=== PATIENT | female | born 1950 | race Caucasian/White ===

== ENCOUNTER → 2019-12-30 11:43 | Outpatient (CLI) | payer MEDICARE, OTHER, SELFPAY ==
--- NOTE | ~2019-12-30 | XR_ITS ---
EXAMINATION: XR foot RT min 3V DATE: 12/30/2019 12:16 INDICATION: Posttraumatic pain at the first metatarsal TECHNIQUE: Dorsoplantar, two oblique and lateral views of the right foot were obtained. COMPARISON: None. FINDINGS: Alignment is normal. Osteopenia. No fracture. 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 No cortical erosions or periosteal reaction. Moderate-sized plantar calcaneal spur. Additional prominent enthesophytes at the dorsal aspect of the navicular cuneiform solomon int. Soft tissues are unremarkable. IMPRESSION: 1. Mild degenerative skeletal changes. No acute osseous abnormality. Reviewed, dictated and finalized at location B.
== END ==
PROVIDERS: Visit Provider Family Medicine Adolescent Medicine
DX: S99.921A Unspecified injury of right foot, initial encounter (principal)
CPT/HCPCS: 73630

== ENCOUNTER → 2020-02-27 12:15 | Outpatient (CLI) | payer MEDICARE, SELFPAY ==
--- NOTE | ~2020-02-27 | MM_ITS ---
EXAMINATION: MM screening ugo BI w tae HISTORY: Screening mammogram, family history of breast cancer in her sister. TECHNIQUE: Craniocaudal and mediolateral oblique 3-D tomosynthesis images were obtained and synthetic 2-D images were generated. CAD analysis was submitted and interpreted. COMPARISON: 04/13/2014, 01/18/2013 BREAST PARENCHYMAL COMPOSITION: There are scattered areas of fibroglandular density. FINDINGS: There is no evidence of suspicious mass, calcification, or architectural distortion to sugg est malignancy in either breast. There has been no suspicious interval change. IMPRESSION: 1. No mammographic evidence of malignancy. 2. Recommend routine screening mammography in one year. BI-RADS Category 1: Negative Reviewed, dictated and finalized at location A. 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
== END ==
PROVIDERS: PCP Family Medicine Adolescent Medicine; Visit Provider Family Medicine Adolescent Medicine
DX: Z12.31 Encounter for screening mammogram for malignant neoplasm of breast (principal)
CPT/HCPCS: 77063; 77067

== ENCOUNTER 2020-04-03 11:38 | Outpatient (NON) | payer MEDICARE, OTHER, SELFPAY ==
[2020-04-03 22:35] LABS: SARS-CoV-2 RNA PCR Positive
== END 2020-04-03 11:39 ==
PROVIDERS: PCP Family Medicine Adolescent Medicine; Visit Provider Family Medicine Adolescent Medicine
DX: U07.1 COVID-19 (principal); R05 Cough; R09.81 Nasal congestion
CPT/HCPCS: C9803; U0003; U0005

== ENCOUNTER → 2021-03-18 13:10 | Outpatient (CLI) | payer MEDICARE, SELFPAY ==
--- NOTE | ~2021-03-18 | MM_ITS ---
EXAMINATION: MM screening ugo BI w tae HISTORY: Screening mammogram, family history of breast cancer in her daughter and sister. TECHNIQUE: Craniocaudal and mediolateral oblique 3-D tomosynthesis images were obtained and synthetic 2-D images were generated. CAD analysis was submitted and interpreted. COMPARISON: 02/27/2020, 04/13/2014, 01/18/2013 BREAST PARENCHYMAL COMPOSITION: There are scattered areas of fibroglandular density. FINDINGS: There is no evidence of suspicious mass, calcification, or architectural distortion to sugg est malignancy in either breast. There has been no suspicious interval change. IMPRESSION: 1. No mammographic evidence of malignancy. 2. Recommend routine screening mammography in one year. BI-RADS Category 1: Negative Reviewed, dictated and finalized at location A. 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
== END ==
PROVIDERS: Visit Provider Family Medicine Adolescent Medicine
DX: Z12.31 Encounter for screening mammogram for malignant neoplasm of breast (principal)
CPT/HCPCS: 77063; 77067

== ENCOUNTER 2021-09-20 10:38 | Outpatient (CLI) | payer MEDICARE, OTHER, SELFPAY ==
--- NOTE | ~2021-09-20 | MR_ITS ---
EXAMINATION: MR foot RT wo con DATE: 09/20/2021 11:27 INDICATION: Right foot pain primarily between the third and fourth toes. Assess for Holland's neuroma. TECHNIQUE: Magnetic resonance imaging (MRI) of the right fore/mid foot was performed without intraven ous contrast. Sequences included sagittal T1-weighted FSE, sagittal fluid sensitive FSE STIR, coronal PD-weighted FS FSE, coronal T1-weighted FSE, axial PD-weighted FS FSE, and axial PD-weighted FSE. COMPARISON: None FINDINGS: Bone alignment is normal. No fracture. Heterotopic ossicle versus hypertrophic osteophyte along the d orsal margin of the navicula with mild underlying cystic change along the medial dorsal margin of the distal articular surface of the navicula. This could be due to either osteoarthritis, chronic enthes opathy at the capsular insertion or sequela of prior trauma/capsular tear. Mild osteoarthritis along the second-fourth tarsal metatarsal joints with additional mild cystic change at the distal medial ma rgin of the mid cuneiform. Otherwise normal marrow signal. Physiologic amount of fluid in the joint s pace with no joint effusions, bursitis, tenosynovitis or other abnormal fluid collections. The [place] ligament complex as well as the collateral ligament complex at the metatarsophalangeal and interph alangeal joints are normal. There is subtle increased intermediate signal intensity tissue situated b etween the second and third metatarsophalangeal joints. The lesion measures 9 mm proximal to distal, 9 mm craniocaudal. In the coronal plane it has a teardrop shape but bulging dorsally as opposed to pl pardeep and without evident extension below the level of the transverse ligament. 2 mm in thickness bet ween the closest approach of the metatarsal heads and slightly thicker measuring 3 to 4 mm medial col lateral more dorsally between the bases of the proximal phalanges. There is small amount of fluid sig nal situated between the proximal margin of the heads of the second and third metatarsals likely with in the intermetatarsal bursa but which remains within normal limits. Visualized portions of the flexo r and extensor tendons and the intrinsic musculature of the foot is unremarkable. IMPRESSION: 1. No definitive Holland's neuroma. There is small amount of intermediate signal intensity tissue situ ated between the second third metatarsophalangeal joints however this projects primarily dorsally wit h no extension plantar to the level of the intermetatarsal ligament is a be typical for Holland's neur maria l. There is also a minimal amount of fluid at the intermetatarsal bursa which remains within normal limits. No other etiology identified for reported pain in the forefoot. 2. Heterotopic ossicle versus dorsal osteophyte with associated mild cystic change along the distal d orsal surface of the navicula which could be related either osteoarthritis, chronic enthesopathy or s equela of a chronic dorsal capsular avulsion injury at the navicular cuneiform articulation. Reviewed, dictated and finalized at location A. IMPRESSION: 1. No definitive Holland's neuroma. There is small amount of intermediate signal intensity tissue situated between the second third metatarsophalangeal joints however this projects primarily dorsally with no extension plantar to the level of the intermetatarsal ligament is a be typical for Holland's neuroma. There is also a minimal amount of fluid at the intermetatarsal bursa which remains with in normal limits. No other etiology identified for reported pain in the forefoot. 2. Heterotopic ossicle versus dorsal osteophyte with associated mild cystic vasu nge along the distal dorsal surface of the navicula which could be related eith er osteoarthritis, chronic enthesopathy or sequela of a chronic d
== END 2021-09-20 10:39 | disposition home or self-care (01) ==
LOC: ANHIMG 10:47
PROVIDERS: PCP Family Medicine Adolescent Medicine; Visit Provider Podiatrist Foot & Ankle Surgery
DX: M79.671 Pain in right foot (principal)
CPT/HCPCS: 73718

== ENCOUNTER 2022-01-13 00:53 | Day surgery (SDC) | payer MEDICARE, OTHER, SELFPAY ==
[2022-01-07 11:12] VITALS: BMI 38.2
[2022-01-13 06:45] VITALS: BP 145/64; PULSE 80; RESP 18; TEMP 36.3; O2SAT 99; BMI 33.1
[2022-01-13] MEDS: LACTATED RINGERS 1,000 ML 150 ML IV CONT (06:55)
[2022-01-13 07:02] LABS: Glucose Point of Care 155 mg/dl (65-105)
--- NOTE | 2022-01-13 07:23 | WPDANESEPPF ---
Anes - Initial Pre Proc Eval Procedure: Operation Date: 01/13/22 08:00 Proposed Procedures p Screening Colonoscopy - Mustapha Easton MD Date/Time: 01/13/22 07:23 Surgeon: Mustapha Easton MD Pre Op Diagnosis: neoplasm screening Patient Data Age: 71 Gender: F Height: 1.68 m Weight: 93.1 kg Last Vital Signs Temp 36.3 C L 01/13/22 06:45 Pulse 80 01/13/22 06:45 Resp 18 01/13/22 06:45 BP 145/64 H 01/13/22 06:45 Pulse Ox 99 01/13/22 06:45 O2 Del Method Room Air 01/13/22 06:45 Allergies Allergy/AdvReac Type Severity Reaction Status Date / Time fenofibrate AdvReac Severe hyperglycem Verified 01/13/22 06:44 ia minocycline AdvReac Mild VOMITING Verified 01/13/22 06:44 Home Medications Medication Instructions Recorded Confirmed Type blood sugar diagnostic (Contour #100 ea 06/28/21 01/13/22 Rx Next Test Strips) diclofenac sodium 75 mg 75 mg PO BID #180 tabs 11/14/21 01/13/22 Rx tablet,delayed release hydrochlorothiazide 25 mg tablet 25 mg PO DAILY #90 tabs 11/14/21 01/13/22 Rx metformin 500 mg tablet 500 mg PO BID #180 tabs 11/14/21 01/13/22 Rx levothyroxine 112 mcg tablet 112 mcg PO DAILY #90 tabs 12/06/21 01/13/22 Rx Laboratory Tests 01/13/22 06:59 POC Capillary Glucose 155 mg/dl H mg/dl (65-105) Patient hx anesthesia problems: none Family hx anesthesia problems: none Results Review: All pre-operative results and documents have been reviewed as part of the pre-operative evaluation. [facility] Past Medical History Medical History (Updated 11/28/21 @ 06:25 by Mando Blankenship MD) Bartholin's duct cyst Surgical History Surgical History History of endometrial ablation Hx of arthroscopy of left knee Hx of BSO (bilateral salpingo-oophorectomy) (08/2017) Family History Family History Father Brain tumor Mother Lymphoma Social History Social History Smoking packs per day: 0.25 Smoking cigarettes per day: 5.0 Years smoked: 18 Smoking pack-years: 4.50 Smoking status: Former smoker Tobacco type: cigarettes Second hand tobacco smoke exposure: No Smoking end date: 09/13/97 Alcohol intake: never Substance use: never Substance use type: does not use Living arrangements: with family Gender identity (if verbalized by the patient): Female Sexual Orientation (if Verbalized by the Patient): Straight or Heterosexual Spiritual care concerns: No Anes - Eval Final PreProcedure Day of Procedure 01/13/22 07:23 Patient weight: obese Heart: regular rate and rhythm Lungs: clear to auscultation Airway: Mallampati scale class II Neurological: alert and oriented Last oral intake: >/= 8 hours ASA classification: III Emergent: no Anesthetic plan: proceed Anesthesia type and monitoring: general GIVS and standard monitoring Results Review: All pre-operative results and documents have been reviewed as part of the pre-operative evaluation. Informed Consent: The patient's anesthetic plan and its attendant risks and benefits were discussed with the patient/family/POA. Questions were solicited and answers provided to the satisfaction of the patient/family/POA.
--- NOTE | 2022-01-13 07:24 | P.HP_ITS ---
History of Present Illness History of Present Illness Consent: Risks, benefits, and alternatives have been discussed and questions answered. Patient agrees to proceed with procedure. Chief complaint: neoplasm screening Narrative: Mary Lancaster is a 71 year old female Presents for screening colonoscopy. Patient's current weight appetite bowel movements are normal. She denies abdominal pain. She has had no bleeding. Family history is noncontributory. Patient did have prior colonoscopy 2003 that was unremarkable. Review of Systems Review of Systems: Review of systems noncontributory. [facility] Past Medical History Medical History (Updated 01/13/22 @ 07:25 by Mustapha Easton MD) Bartholin's duct cyst Surgical History Surgical History History of endometrial ablation Hx of arthroscopy of left knee Hx of BSO (bilateral salpingo-oophorectomy) (08/2017) Family History Family History Father Brain tumor Mother Lymphoma Social History Social History Smoking packs per day: 0.25 Smoking cigarettes per day: 5.0 Years smoked: 18 Smoking pack-years: 4.50 Smoking status: Former smoker Tobacco type: cigarettes Second hand tobacco smoke exposure: No Smoking end date: 09/13/97 Alcohol intake: never Substance use: never Substance use type: does not use Living arrangements: with family Gender identity (if verbalized by the patient): Female Sexual Orientation (if Verbalized by the Patient): Straight or Heterosexual Spiritual care concerns: No Meds Home Medications and Allergies Home Medications Medication Instructions Recorded Confirmed Type blood sugar diagnostic (Contour #100 ea 06/28/21 01/13/22 Rx Next Test Strips) diclofenac sodium 75 mg 75 mg PO BID #180 tabs 11/14/21 01/13/22 Rx tablet,delayed release hydrochlorothiazide 25 mg tablet 25 mg PO DAILY #90 tabs 11/14/21 01/13/22 Rx metformin 500 mg tablet 500 mg PO BID #180 tabs 11/14/21 01/13/22 Rx levothyroxine 112 mcg tablet 112 mcg PO DAILY #90 tabs 12/06/21 01/13/22 Rx Allergies Allergy/AdvReac Type Severity Reaction Status Date / Time fenofibrate AdvReac Severe hyperglycem Verified 01/13/22 06:44 ia minocycline AdvReac Mild VOMITING Verified 01/13/22 06:44 Vital Signs Vital Signs - 24 hr 01/13/22 06:45 Temperature 97.3 F L Pulse Rate 80 Respiratory Rate 18 Blood Pressure 145/64 H Pulse Oximetry 99 Oxygen Delivery Room Air Exam Narrative: Physical exam reveals patient to be alert. Vital signs stable. HEENT exam is unremarkable. Patient is anicteric. Lungs are clear to auscultation and percussion. Heart is without murmur or extra sounds. Abdomen bowel sounds are present soft nontender with no organomegaly. Digital external rectal exam is normal. Assessment and Plan Assessment and plan (1) Encounter for screening colonoscopy: Code(s): Z12.11 - Encounter for screening for malignant neoplasm of colon Status: Acute Assessment and Plan: Patient presents for screening colonoscopy. Appears to be at average risk f
[2022-01-13 08:16] VITALS: BP 118/57; PULSE 68; RESP 21; O2SAT 98
[2022-01-13 08:26] VITALS: BP 140/64; PULSE 62; RESP 20; O2SAT 97
[2022-01-13 08:36] VITALS: BP 154/68; PULSE 69; RESP 18; O2SAT 100
== END 2022-01-13 08:42 | disposition home or self-care (01) ==
PROVIDERS: PCP Family Medicine Adolescent Medicine; Visit Provider Internal Medicine Gastroenterology
PROC: 0DJD8ZZ Inspection of Lower Intestinal Tract, Via Natural or Artificial Opening Endoscopic (ICD-10-PCS; CPT 45378; principal; 2022-01-13 08:00)
DX: Z12.11 Encounter for screening for malignant neoplasm of colon (principal); K64.8 Other hemorrhoids; K57.30 Diverticulosis of large intestine without perforation or abscess without bleeding; Z79.84 Long term (current) use of oral hypoglycemic drugs; Z87.891 Personal history of nicotine dependence; E66.9 Obesity, unspecified; Z68.33 Body mass index [BMI] 33.0-33.9, adult
CPT/HCPCS: G0121; 82948; J2704; J7120

== ENCOUNTER 2022-07-15 16:56 | Outpatient (CLI) | payer MEDICARE, OTHER, SELFPAY ==
--- NOTE | ~2022-07-15 | MM_ITS ---
EXAMINATION: MM screening ugo BI w tae HISTORY: Screening mammogram, family history of breast cancer in her sister. TECHNIQUE: Craniocaudal and mediolateral oblique 3-D tomosynthesis images were obtained and synthetic 2-D images were generated. CAD analysis was submitted and interpreted. COMPARISON: 03/18/2021 and 02/27/2020 BREAST PARENCHYMAL COMPOSITION:There are scattered areas of fibroglandular density. FINDINGS: Multiple small bilateral circumscribed breast nodules are stable from prior exam. Bilateral benign calcifications are present. No suspicious mass, calcification, or architectural distortion ar e identified in either breast to suggest malignancy. There has been no suspicious interval change. IMPRESSION: No mammographic evidence of malignancy. Recommend routine screening mammography in one year. BI-RADS Category 2: Benign finding(s). Reviewed, dictated and finalized at [facility].
== END 2022-07-15 16:57 | disposition home or self-care (01) ==
PROVIDERS: PCP Family Medicine Adolescent Medicine; Visit Provider Family Medicine Adolescent Medicine
DX: Z12.31 Encounter for screening mammogram for malignant neoplasm of breast (principal)
CPT/HCPCS: 77063; 77067

== ENCOUNTER 2023-08-18 14:11 | Outpatient (CLI) | payer MEDICARE, OTHER, SELFPAY ==
--- NOTE | ~2023-08-18 | MM_ITS ---
EXAMINATION: MM screening ugo BI w tae HISTORY: Screening TECHNIQUE: Craniocaudal and mediolateral oblique 3-D tomosynthesis images were obtained and synthetic 2-D images were generated. CAD analysis was submitted and interpreted. COMPARISON: Comparison to multiple prior studies sequentially, with oldest reviewed study dated 02/13. BREAST PARENCHYMAL COMPOSITION: Not dense: There are scattered areas of fibroglandular density. FINDINGS: There is no evidence of suspicious mass, calcification, or architectural distortion to sugg est malignancy in either breast. There has been no suspicious interval change. IMPRESSION: 1. No mammographic evidence of malignancy. 2. Recommend routine screening mammography in one year. BI-RADS Category 1: Negative Reviewed, dictated and finalized at location B.
== END 2023-08-18 14:12 | disposition home or self-care (01) ==
PROVIDERS: PCP Family Medicine Adolescent Medicine; Visit Provider Family Medicine Adolescent Medicine
DX: Z12.31 Encounter for screening mammogram for malignant neoplasm of breast (principal)
CPT/HCPCS: 77063; 77067

== ENCOUNTER 2024-05-30 14:11 | Outpatient (CLI) | payer MEDICARE, OTHER, SELFPAY ==
--- NOTE | ~2024-05-30 | DEXA_ITS ---
Bone Density Report Name: GONZÁLEZ BETANCUR Age: 74 Sex: Female Ethnicity: White Date of : 1950 Indication: postmenopausal; screening for osteoporosis; height loss; prior fracture; hysterectomy; Referring Provider: REGULO TYLER Study: Bone densitometry was performed. Exam Date: May 30, 2024 Accession number: [id number] Bone Density: Region BMD T-score Z-score Classification AP Spine(L1-L4) 1.261 1.9 4.3 Normal Femoral Neck (Left) 0.890 0.4 2.4 Normal Total Hip (Left) 1.086 1.2 2.9 Normal Femoral Neck (Right) 0.963 1.0 3.1 Normal Total Hip (Right) 1.087 1.2 2.9 Normal Total Hip Mean 1.087 1.2 2.9 Normal World Health Organization criteria for BMD impression classify patients as: Normal (T-score at or above -1.0), Osteopenia (T-score between -1.0 and -2.5), or Osteoporosis (T-score at or below -2.5). 10-year Fracture Risk: FRAX not reported because: All T-scores for Spine Total, Hip Total, Femoral Neck at or above -1.0 Prior hip or vertebral fracture Clinical Information Provided by Patient: Have had a previous hip or vertebral fracture Has had a low trauma fracture Has the following medical conditions: Hysterectomy Patient maximum height was 65.5 Menopause Age: 37 Onset of menses at age 11 Number of children 2 Missed period for more than 6 months in a row Impression: The patient has normal bone mass. The patient has risk factors, including: previous fracture. Discussion: INCREASED RISK OF FRACTURE DUE TO HISTORY OF FRACTURE. The patient's previous fracture puts the patient at high risk of a future fracture. In untreated patients, the risk of osteoporotic fracture increases approximately two-fold for each 1.0 SD decrease in T-score. Low bone density is not the only risk factor for fracture; also consider factors such as patient's age, frailty or poor health, risk of falling, risk of injury, previous osteoporotic fracture, family history of osteoporosis, cigarette smoking, low body weight, etc. Not everyone with a low trauma fracture has osteoporosis; osteomalacia and other metabolic bone disorders should also be considered. Patients who have osteoporosis should be evaluated for specific diseases and conditions (secondary causes) that may cause or contribute to bone loss and fracture risk. National Osteoporosis Foundation (NOF) recommends pharmacologic intervention for patients with a prior hip or vertebral fracture regardless of BMD T-score. The patient should follow a healthful lifestyle (good nutrition with adequate calcium and vitamin D, and appropriate weight-bearing exercise). Follow-Up: Consider a repeat BMD and Vertebral Fracture Assessment (VFA) exam in 2 years or sooner if medically necessary, to reassess this patient's status. Reported by: CAMERON on 05/30/2024 2:45:00 PM. Reviewed, dictated and finalized at location A.
--- OUTSIDE RECORDS SUMMARY | 2024-05-30 16:46 | XMS_ITS | Continuity of Care Document ---
Author Organization [facility] Address [address] [place] [address] [address] [place] [address] Phone Care Team Providers Care Chief Service Observer Name Role Phone Villarreal OD, Mustapha Unavailable Unavailable Procedures Procedure Date Eye Exam & Treatment Refraction Advance Directives Directive Yes / No Effective Date File Name No Information Encounters Encounter Description Practice Location Reason(s) For Visit Diagnoses Date Provider Providers Copied on Encounter [facility], [address] [place] [address] [address], [place], [place], [id number], [place] tel:[phone] [address] [facility] No Information [phone] Villarreal OD Mustapha. [address] , [address], [place], [address], [place]. tel:[phone] Family History Family Member Type Diagnosis Age At Onset No Information Payers Payer name Insurance type Covered constitution party ID Aby espinoza(s) [facility] CI [id number] Social History Type Description Quantity Date Captured Comments Sex Female Smoking Status No Information Chief Complaint And Reason For Visit No Information Reason For Referral Reason For Referral No Information History Of Present Illness Encounter Date Complaint History Of Prese nt Illness No Information Functional Status Date Functional Assessmen t No Information Instructions Date Instruction Additional Infor mation No Information Assessments Type Assessment Date No Information Patient Care Teams Name Effective Dates (start - stop) Status Members No Information
--- OUTSIDE RECORDS SUMMARY | 2024-05-30 16:46 | XMS_ITS | Encounter Summary ---
Author Organization [facility] Address [address] [place] [address] Care Team Providers Care Motor Setter Name Role Phone Unavailable Primary Care Provider Unavailabl e Prior Encounters Date Type Department Care Team Description 12/15/2023 Travel 12/15/2023 11:00 AM CDT Office Visit [facility] [address] [place] [phone] Casandra Lizarraga, [facility] 09/08/2023 11:00 AM CDT Office Visit [address] [phone] Casandra Lizarraga, [facility] 09/08/2023 11:00 AM CDT Office Visit [facility] [address] [place] [phone] Agata Villafana DMD Encounter for dental examination and cleaning without abnormal findings (Primary Dx) 09/03/2023 Travel 09/03/2023 2:00 PM CDT Office Visit [facility] [address] [place] [phone] Mohamud Hanks DDS 08/05/2023 Travel 08/05/2023 9:30 AM CDT Office Visit [address] [phone] Mohamud Hanks DDS 07/10/2023 10:00 AM CDT Office Visit [address] [phone] Agata Villafana DMD 06/23/2023 11:00 AM CDT Office Visit [facility] [address] [place] [phone] Mohamud Hanks S 04/16/2023 Travel 04/16/2023 10:00 AM RISK ADVISOR Office Visit [facility] [address] [place] [phone] Mohamud Hanks DDS 02/26/2023 Travel 02/26/2023 2:00 PM RISK ADVISOR Office Visit [facility] [address] [place] [phone] Agata Villafana, [facility] 02/26/2023 1:00 PM RISK ADVISOR Office Visit [facility] [address] [place] [phone] Casandra Lizarraga, [facility] 09/12/2022 11:00 AM CDT Office Visit [facility] [address] [place] [phone] Casandra Lizarraga, [facility] 09/04/2022 Travel 09/04/2022 1:00 PM CDT Office Visit [address] [phone] Casandra Lizarraga, [facility] 09/02/2022 Travel 09/02/2022 11:00 AM CDT Office Visit [facility] [address] [place] [phone] Casandra Lizarraga, [facility] 05/20/2022 12:00 PM RISK ADVISOR Office Visit [facility] [address] [place] [phone] Rickey Duvall [facility] 11/26/2021 Travel 11/26/2021 10:00 AM CDT Office Visit [facility] [address] [place] [phone] Rosanne Dodson, [facility] 08/28/2021 10:00 AM CDT Office Visit [facility] [address] [place] [address] Joce Severino DDS 08/28/2021 10:00 AM CDT Office Visit [facility] [address] [place] [address] Rosanne Dodson, [facility] 05/29/2021 2:00 PM CDT Office Visit [facility] [address] [place] [address] Rosanne Dodson, [facility] 02/27/2021 Travel 02/27/2021 11:00 AM RISK ADVISOR Office Visit [facility] [address] [place] [phone] Victoria Victoria, DMD 02/27/2021 11:00 AM RISK ADVISOR Office Visit [facility] [address] [place] [address] Rosanne Dodson, [facility] 11/14/2020 Travel 11/14/2020 11:00 AM CDT Office Visit [facility] [address] [place] [address] Rosanne Dodson, [facility] 04/04/2019 Converted CPS Chart Documents [facility] [address] [place] [phone] <No scans attached> 04/04/2019 Converted 13x Documents [facility] [address] [place] [address] <No scans attached> Last Filed Vital Signs Vital Sign Reading Time Taken Comments Blood Pressure 152/79 09/12/2022 11:12 AM CDT Pulse 61 09/12/2022 11:12 AM CDT Temperature 36.1 C (97 F) 02/27/2021 9:59 AM RISK ADVISOR Respiratory Rate - - Oxygen Saturation - - Inhaled Oxygen Concentration - - Weight - - Height - - Body Mass Index - - Plan of Treatment Upcoming Encounters Date Type Department Care Team (Late st Contact Info) Description 06/21/2024 11:00 AM CDT Office Visit [facility] [address] [place] [phone] Yolanda Edwards, [facility] [address] [place] [address] Procedures Procedure Name Priority Date/Time Associated Diagnosis Comments PERIO MAINTENANCE Routine 12/15/2023 11: 00 AM CDT PERIODIC ORAL EVALUATION - ESTABLISHED PATIENT Routine 09/08/2023 11:00 AM CDT Encounter for dental examination and cleaning without abnormal findings BITEWINGS - FOUR RADIOGRAPHIC IMAGES Routine 09/08/2023 11:00 AM CDT ORAL HYGIENE INSTRUCTIONS Routine 2023 11:00 AM CDT TOPICAL APPLICATION OF FLUORIDE VARNISH Routine 09/08/2023 11:00 AM CDT PERIO MAINTENANCE Routine 09/08/2023 11: 00 AM CDT RE-EVALUATION POST-OPERATIVE OFFICE VISIT Routine 09/03/2023 2:00 PM CDT 13 UL OSSEOUS SURGERY ONE TO THREE CONTIGUOUS TEETH Routine 08/05/2023 9:30 AM CDT OCCLUSAL GUARD DELIVERY Routine 08/05/19 9:30 AM CDT 19 LL OSSEOUS SURGERY FOUR OR MORE CONTIGUOUS TEETH Routine 08/05/2023 9:30 AM CDT RE-EVALUATION POST-OPERATIVE OFFICE VISIT Routine 07/10/2023 10:00 AM CDT 4 UR ALVEOLOPLASTY IN CONJUNCTION WITH EXTRACTIONS - ONE TO THREE TEETH OR TOOTH SPACES, PER QUADRANT Routine 06/23/2023 11:00 AM CDT UR PRIMARY CLOSURE OF A SINUS PERFORATION Routine 06/23/2023 11:00 AM CDT OCCLUSAL GUARD HARD APPLIANCE, FULL ARCH Routine 06/23/2023 11:00 AM CDT 5 PLACEMENT OF INTRA-SOCKET BIOLOGICAL DRESSING TO AID IN HEMOSTASIS OR CLOT STABILIZATION, PER SITE Routine 06/23/2023 11:00 AM CDT 4 PLACEMENT OF INTRA-SOCKET BIOLOGICAL DRESSING TO AID IN HEMOSTASIS OR CLOT STABILIZATION, PER SITE Routine 06/23/2023 11:00 AM CDT 5 EXTRACTION, ERUPTED TOOTH REQUIRING REMOVAL OF BONE AND/OR SECTIONING OF TOOTH Routine 06/23/2023 11:00 AM CDT 3 PLACEMENT OF INTRA-SOCKET BIOLOGICAL DRESSING TO AID IN HEMOSTASIS OR CLOT STABILIZATION, PER SITE Routine 06/23/2023 11:00 AM CDT 4 EXTRACTION, ERUPTED TOOTH REQUIRING REMOVAL OF BONE AND/OR SECTIONING OF TOOTH Routine 06/23/2023 11:00 AM CDT 5 UR OSSEOUS SURGERY ONE TO THREE CONTIGUOUS TEETH Routine 06/23/2023 11:00 AM CDT 3 EXTRACTION, ERUPTED TOOTH REQUIRING REMOVAL OF BONE AND/OR SECTIONING OF TOOTH Routine 06/23/2023 11:00 AM CDT 29 LR OSSEOUS SURGERY FOUR OR MORE CONTIGUOUS TEETH Routine 06/23/2023 11:00 AM CDT PERIO CONSULT Routine 04/16/2023 10:00 AM RISK ADVISOR PERIODIC ORAL EVALUATION - ESTABLISHED PATIENT Routine 02/26/2023 2:00 PM RISK ADVISOR TOPICAL APPLICATION OF FLUORIDE VARNISH Routine 02/26/2023 1:00 PM RISK ADVISOR PERIO MAINTENANCE Routine 02/26/2023 1:0 0 PM RISK ADVISOR ORAL HYGIENE INSTRUCTIONS Routine 2022 1:00 PM RISK ADVISOR UL JOSE DECON/QD Routine 09/12/2022 11:00 AM CDT ORAL HYGIENE INSTRUCTIONS Routine 2022 11:00 AM CDT LL PERIODONTAL SCALING AND ROOT PLANING - FOUR OR MORE TEETH PER QUADRANT Routine 09/12/2022 11:00 AM CDT UL ANTIBACT IRR/QUAD Routine 09/12/2022 11:00 AM CDT UL PERIODONTAL SCALING AND ROOT PLANING - FOUR OR MORE TEETH PER QUADRANT Routine 09/12/2022 11:00 AM CDT LL JOSE DECON/QD Routine 09/12/2022 11:00 AM CDT LL ANTIBACT IRR/QUAD Routine 09/12/2022 11:00 AM CDT UR JOSE DECON/QD Routine 09/04/2022 1:00 PM CDT LR JOSE DECON/QD Routine 09/04/2022 1:00 PM CDT UR ANTIBACT IRR/QUAD Routine 09/04/2022 1:00 PM CDT LR ANTIBACT IRR/QUAD Routine 09/04/2022 1:00 PM CDT LR PERIODONTAL SCALING AND ROOT PLANING - FOUR OR MORE TEETH PER QUADRANT Routine 09/04/2022 1:00 PM CDT UR PERIODONTAL SCALING AND ROOT PLANING - FOUR OR MORE TEETH PER QUADRANT Routine 09/04/2022 1:00 PM CDT OFFICE VISIT FOR OBSERVATION (DURING REGULARLY SCHEDULED HOURS) - NO OTHER SERVICES PERFORMED Routine 09/02/2022 11:00 AM CDT PERIODIC ORAL EVALUATION - ESTABLISHED PATIENT Routine 05/20/2022 12:00 PM RISK ADVISOR ORAL HYGIENE INSTRUCTIONS Routine 2022 12:00 PM RISK ADVISOR PERIO MAINTENANCE Routine 05/20/2022 12: 00 PM RISK ADVISOR PERIO MAINTENANCE Routine 11/26/2021 10: 00 AM CDT ORAL HYGIENE INSTRUCTIONS Routine 2021 10:00 AM CDT PERIODIC ORAL EVALUATION - ESTABLISHED PATIENT Routine 08/28/2021 10:00 AM CDT TOPICAL APPLICATION OF FLUORIDE VARNISH Routine 08/28/2021 10:00 AM CDT ORAL HYGIENE INSTRUCTIONS Routine 2021 10:00 AM CDT PERIO MAINTENANCE Routine 08/28/2021 10: 00 AM CDT ORAL HYGIENE INSTRUCTIONS Routine 2021 2:00 PM CDT PERIO MAINTENANCE Routine 05/29/2021 2:0 0 PM CDT TOPICAL APPLICATION OF FLUORIDE VARNISH Routine 02/27/2021 11:00 AM RISK ADVISOR ORAL HYGIENE INSTRUCTIONS Routine 2020 11:00 AM RISK ADVISOR PERIO MAINTENANCE Routine 02/27/2021 11: 00 AM RISK ADVISOR BITEWINGS - FOUR RADIOGRAPHIC IMAGES Routine 02/27/2021 11:00 AM RISK ADVISOR PERIODIC ORAL EVALUATION - ESTABLISHED PATIENT Routine 02/27/2021 11:00 AM RISK ADVISOR ORAL HYGIENE INSTRUCTIONS Routine 2020 11:00 AM CDT PERIO MAINTENANCE Routine 11/14/2020 11: 00 AM CDT PERIO MAINTENANCE Routine 08/07/2020 2:0 0 AM CDT ORAL HYGIENE INSTRUCTIONS Routine 2020 2:00 AM CDT TOPICAL APPLICATION OF FLUORIDE VARNISH Routine 08/07/2020 2:00 AM CDT PERIO MAINTENANCE Routine 05/08/2020 2:0 0 AM RISK ADVISOR ORAL HYGIENE INSTRUCTIONS Routine 2020 2:00 AM RISK ADVISOR PERIO MAINTENANCE Routine 01/31/2020 2:0 0 AM RISK ADVISOR ORAL HYGIENE INSTRUCTIONS Routine 2019 2:00 AM RISK ADVISOR 1 FM IRR W/PERIO MAINT Routine 0 2:00 AM RISK ADVISOR 30 PONTIC - PFM - POST Routine 0 2:00 AM RISK ADVISOR 19 PONTIC - PFM - POST Routine 0 2:00 AM RISK ADVISOR 31 RETAINER CROWN - PFM - POST Routine 01/25/2020 2:00 AM RISK ADVISOR 29 RETAINER CROWN - PFM - POST Routine 01/25/2020 2:00 AM RISK ADVISOR 20 RETAINER CROWN - PFM - POST Routine 01/25/2020 2:00 AM RISK ADVISOR 18 RETAINER CROWN - PFM - POST Routine 01/25/2020 2:00 AM RISK ADVISOR 5 DO AMALGAM 2 SURFACE Routine 0 2:00 AM RISK ADVISOR 3 ENDODONTIC THERAPY, MOLAR TOOTH (EXCLUDING FINAL RASTAFARIAN) Routine 01/25/2020 2:00 AM RISK ADVISOR 13 ENDODONTIC THERAPY, PREMOLAR TOOTH (EXCLUDING FINAL RASTAFARIAN) Routine 01/25/2020 2:00 AM RISK ADVISOR 13 CROWN PFM POST Routine 01/25/2020 2:0 0 AM RISK ADVISOR 12 CROWN PFM POST Routine 01/25/2020 2:0 0 AM RISK ADVISOR 4 CROWN PFM POST Routine 01/25/2020 2:00 AM RISK ADVISOR 3 CROWN PFM POST Routine 01/25/2020 2:00 AM RISK ADVISOR 32 EXTRACTION, ERUPTED TOOTH OR EXPOSED ROOT (ELEVATION AND/OR FORCEPS REMOVAL) Routine 01/25/2020 2:00 AM RISK ADVISOR 30 EXTRACTION, ERUPTED TOOTH OR EXPOSED ROOT (ELEVATION AND/OR FORCEPS REMOVAL) Routine 01/25/2020 2:00 AM RISK ADVISOR 19 EXTRACTION, ERUPTED TOOTH OR EXPOSED ROOT (ELEVATION AND/OR FORCEPS REMOVAL) Routine 01/25/2020 2:00 AM RISK ADVISOR 17 EXTRACTION, ERUPTED TOOTH OR EXPOSED ROOT (ELEVATION AND/OR FORCEPS REMOVAL) Routine 01/25/2020 2:00 AM RISK ADVISOR 16 EXTRACTION, ERUPTED TOOTH OR EXPOSED ROOT (ELEVATION AND/OR FORCEPS REMOVAL) Routine 01/25/2020 2:00 AM RISK ADVISOR 15 EXTRACTION, ERUPTED TOOTH OR EXPOSED ROOT (ELEVATION AND/OR FORCEPS REMOVAL) Routine 01/25/2020 2:00 AM RISK ADVISOR 2 EXTRACTION, ERUPTED TOOTH OR EXPOSED ROOT (ELEVATION AND/OR FORCEPS REMOVAL) Routine 01/25/2020 2:00 AM RISK ADVISOR 1 EXTRACTION, ERUPTED TOOTH OR EXPOSED ROOT (ELEVATION AND/OR FORCEPS REMOVAL) Routine 01/25/2020 2:00 AM RISK ADVISOR 14 EXTRACTION, ERUPTED TOOTH OR EXPOSED ROOT (ELEVATION AND/OR FORCEPS REMOVAL) Routine 01/25/2020 2:00 AM RISK ADVISOR COMPREHENSIVE ORAL EVALUATION - NEW OR ESTABLISHED PATIENT Routine 01/25/2020 2:00 AM RISK ADVISOR PANORAMIC RADIOGRAPHIC IMAGE Routine 01/25/2020 2:00 AM RISK ADVISOR INTRAORAL - COMPREHENSIVE SERIES OF RADIOGRAPHIC IMAGES Routine 01/25/2020 2:00 AM RISK ADVISOR OFFICE VISIT FOR OBSERVATION (DURING REGULARLY SCHEDULED HOURS) - NO OTHER SERVICES PERFORMED Routine 01/25/2020 2:00 AM RISK ADVISOR INTRAORAL PHOTO Routine 01/25/2020 2:00 AM RISK ADVISOR INTRAORAL PHOTO Routine 01/25/2020 2:00 AM RISK ADVISOR INTRAORAL PHOTO Routine 01/25/2020 2:00 AM RISK ADVISOR INTRAORAL PHOTO Routine 01/25/2020 2:00 AM RISK ADVISOR 7 DL COMPOSITE FILLING Routine 0 2:00 AM RISK ADVISOR 6 ML COMPOSITE FILLING Routine 0 2:00 AM RISK ADVISOR Visit Diagnoses Diagnosis Start Date Encounter for dental examination and cleaning without abnormal findings 09/08/2023 Insurance [facility] [employer]
--- OUTSIDE RECORDS SUMMARY | 2024-05-30 16:46 | XMS_ITS | Clinical Summary ---
Author Organization [facility] Address [address] [place] [address] Care Team Providers Care Steel Sampler Name Role Phone Unavailable Primary Care Provider Unavailabl e Allergies Active Allergy Reactions Criticality Noted Date Comments Other Anxiety,Diarrhea Low 11/14/2020 Medications hydroCHLOROthiaz jazlyn (HYDRODIURIL) 25 mg tablet Active levothyroxine (SYNTHROID, UNITHROID) 100 mcg tablet Active diclofenac (CATAFLAM) 50 mg tablet Active metFORMIN (GLUCOPHAGE) 1,000 mg tablet Acti ve chlorhexidine (PERIDEX) 0.12 % solution Rinse with 15mL for one minute twice daily. Spit out. No food/drink for 30 minutes. 473 mL 06/23/2023 Active chlorhexidine (PERIDEX) 0.12 % solution Swish 15 mL for one minute twice daily. Spit out. 480 mL 08/05/2023 Active Active Problems Problem Noted Date Diagnosed Date Periodontitis 09/08/2023 Social History Tobacco Use Types Packs/Day Years Used Date Smoking Tobacco: Former Cigarettes 0 03/16/1968 - 09/28/1988 Smokeless Tobacco: Never Tobacco Cessation:Counseling Given: Not Answered Alcohol Use Standard Drinks/Week Comments Not Currently 0 (1 standard drink = 0.6 oz pur e alcohol) Comments Unknown Sex and Gender Information Value Date Recorded Sex Assigned at Not on file Legal Sex Female 9:01 PM PDT Gender Identity Not on file Sexual Orientation Not on file Last Filed Vital Signs Vital Sign Reading Time Taken Comments Blood Pressure 152/79 09/12/2022 11:12 AM CDT Pulse 61 09/12/2022 11:12 AM CDT Temperature 36.1 C (97 F) 02/27/2021 9:59 AM 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 [address] [place] [address] Health Maintenance Due Date Last Done Comments Dental X-Ray: Full Mouth 08/02/2023 07/31/2020, 01/14 Dental Oral Exam 03/10/2024 09/08/2023, , 05/20/2022, Additional history exists Dental X-Ray: Bitewings 03/10/2024 09/08/2023 Periodontal Maintenance 03/17/2024 12/15/19 24, 09/08/2023, 02/26/2023, Additional history exists Scaling and Root Planing 09/26/2024 023, 09/12/2022, 09/04/2022, Additional history exists Dental X-Ray: Panoramic 04/17/2026 04/16/2023, 01/24 Meningococcal B Vaccine Aged Out No l onger eligible based on patient's age to complete this topic Procedures Procedure Name Priority Date/Time Associated Diagnosis Comments PERIO MAINTENANCE Routine 12/15/2023 11: 00 AM CDT PERIODIC ORAL EVALUATION - ESTABLISHED PATIENT Routine 09/08/2023 11:00 AM CDT Encounter for dental examination and cleaning without abnormal findings UL PERIODONTAL SCALING AND ROOT PLANING - FOUR OR MORE TEETH PER QUADRANT Routine 09/12/2022 11:00 AM CDT PANORAMIC RADIOGRAPHIC IMAGE Routine 01/25/2020 2:00 AM RESTAURANT CASHIER INTRAORAL - COMPREHENSIVE SERIES OF RADIOGRAPHIC IMAGES Routine 01/25/2020 2:00 AM RESTAURANT CASHIER from Last 3 Months or Most Recently Relevant to Health Maintenance Insurance [employer]
== END 2024-05-30 14:12 | disposition home or self-care (01) ==
LOC: ANHIMG 14:13
PROVIDERS: PCP Family Medicine Adolescent Medicine; Visit Provider Family Medicine
DX: Z78.0 Asymptomatic menopausal state (principal)
CPT/HCPCS: 77080

== ENCOUNTER 2024-08-19 09:00 | Outpatient (CLI) | payer MEDICARE, OTHER, SELFPAY ==
--- NOTE | ~2024-08-19 | MM_ITS ---
EXAMINATION: MM screening [facility] BI w tae HISTORY: Screening TECHNIQUE: Craniocaudal and mediolateral oblique 3-D tomosynthesis images were obtained and synthetic 2-D images were generated. CAD analysis was submitted and interpreted. COMPARISON: 08/18/2023 through 02/27/2020. BREAST PARENCHYMAL COMPOSITION: The breasts are almost entirely fatty. FINDINGS: Scattered benign-appearing calcifications are present. There is no evidence of suspicious m ass, calcification, or architectural distortion to suggest malignancy in either breast. There has bee n no suspicious interval change. IMPRESSION: 1. No mammographic evidence of malignancy. 2. Recommend routine screening mammography in one year. BI-RADS Category 2: Benign finding(s). Reviewed, dictated and finalized at location B.
--- OUTSIDE RECORDS SUMMARY | 2024-08-19 09:05 | XMS_ITS | Continuity of Care Document ---
Author Organization [facility] Address [address] [place] [address] [address] [place] [address] Phone Care Team Providers Care Sheep Killer Name Role Phone Villarreal OD, Mustapha Unavailable Unavailable Procedures Procedure Date Eye Exam & Treatment Refraction Advance Directives Directive Yes / No Effective Date File Name No Information Encounters Encounter Description Practice Location Reason(s) For Visit Diagnoses Date Provider Providers Copied on Encounter [facility], [address] [place] [address] [address], [place], [place], [id number], [place] tel:[phone] [facility] No Information [phone] Villarreal OD Mustapha. [address] , [address], [place], [address], [place]. tel:[phone] Family History Family Member Type Diagnosis Age At Onset No Information Payers Payer name Insurance type Covered republican ID Aby espinoza(s) [facility] CI [id number] Social History Type Description Quantity Date Captured [...]
--- OUTSIDE RECORDS SUMMARY | 2024-08-19 09:05 | XMS_ITS | Clinical Summary ---
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 [id number] [place] [address] 10/04/2024 11:00 AM CDT Office Visit [address] [phone] Agata Villafana, DMD [address] [place] [address] 01/04/2025 11:00 AM CDT Office Visit [address] [phone] [facility] [address] [place] [address] Health Maintenance Due Date Last Done Comments Dental X-Ray: Full Mouth 08/02/2023 07/31/2020, 01/14 Dental Oral Exam 03/10/2024 09/08/2023, , 05/20/2022, Additional history exists Dental X-Ray: Bitewings 03/10/2024 09/08/2023 Periodontal Maintenance 09/21/2024 06/22/19 25, 12/15/2023, 09/08/2023, Additional history exists Scaling and Root Planing 09/26/202409/12/ 023, 09/12/2022, 09/04/2022, Additional history exists Dental X-Ray: Panoramic 04/17/2026 04/16/2023, 01/24 Meningococcal B Vaccine Aged Out No l onger eligible based on patient's age to complete this topic Procedures Procedure Name Priority Date/Time Associated Diagnosis Comments TOPICAL APPLICATION OF FLUORIDE VARNISH Routine 06/21/2024 11:00 AM CDT PERIO MAINTENANCE Routine 06/21/2024 11: 00 AM CDT PERIODIC ORAL EVALUATION - ESTABLISHED PATIENT Routine 09/08/2023 11:00 AM CDT Encounter for dental examination and cleaning without abnormal findings UL PERIODONTAL SCALING AND ROOT PLANING - FOUR OR MORE TEETH PER QUADRANT Routine 09/12/2022 11:00 AM CDT PANORAMIC RADIOGRAPHIC IMAGE Routine 01/25/2020 2:00 AM SPEECH LANGUAGE PATHOLOGIST ASSISTANT INTRAORAL - COMPREHENSIVE SERIES OF RADIOGRAPHIC IMAGES Routine 01/25/2020 2:00 AM SPEECH LANGUAGE PATHOLOGIST ASSISTANT from Last 3 Months or Most Recently Relevant to Health Maintenance Insurance [employer] [place] [address]
--- OUTSIDE RECORDS SUMMARY | 2024-08-19 09:05 | XMS_ITS | Encounter Summary ---
Author Organization [facility] Health Address [address] [place] [address] Care Team Providers Care Plate Driller Name Role Phone Unavailable Primary Care Provider Unavailabl e Prior Encounters Date Type Department Care Team Description 06/21/2024 11:00 AM CDT Office Visit [facility] [address] [place] [phone] Yolanda Edwards, [facility] 12/15/2023 Travel 12/15/2023 11:00 AM CDT Office Visit [address] [phone] Casandra Lizarraga, [facility] 09/08/2023 11:00 AM CDT Office Visit [address] [phone] Casandra Lizarraga, [facility] 09/08/2023 11:00 AM CDT Office Visit [address] [phone] Agata Villafana, [facility] Encounter for dental examination and cleaning without abnormal findings (Primary Dx) 09/03/2023 Travel 09/03/2023 2:00 PM CDT Office Visit [address] [phone] Mohamud Hanks DDS 08/05/2023 Travel 08/05/2023 9:30 AM CDT Office Visit [address] [phone] Mohamud Hanks DDS 07/10/2023 10:00 AM CDT Office Visit [facility] [address] [place] [phone] Agata Villafana, DMD 06/23/2023 11:00 AM CDT Office Visit [facility] [address] [place] [phone] Mohamud Hanks, S 04/16/2023 Travel 04/16/2023 10:00 AM SOCIAL AND POLITICAL STUDIES PROFESSOR Office Visit [facility] [address] [place] [phone] Mohamud Hanks, DDS 02/26/2023 Travel 02/26/2023 2:00 PM SOCIAL AND POLITICAL STUDIES PROFESSOR Office Visit [facility] [address] [place] [phone] Agata Villafana, DMD 02/26/2023 1:00 PM SOCIAL AND POLITICAL STUDIES PROFESSOR Office Visit [facility] [address] [place] [phone] Casandra Lizarraga, [facility] 09/12/2022 11:00 AM CDT Office Visit [address] [phone] Casandra Lizarraga, [facility] 09/04/2022 Travel 09/04/2022 1:00 PM CDT Office Visit [facility] [address] [place] [phone] Casandra Lizarraga, [facility] 09/02/2022 Travel 09/02/2022 11:00 AM CDT Office Visit [facility] [address] [place] [phone] Casandra Lizarraga, [facility] 05/20/2022 12:00 PM SOCIAL AND POLITICAL STUDIES PROFESSOR Office Visit [facility] [address] [place] [phone] Rickey Duvall, [facility] 11/26/2021 Travel 11/26/2021 10:00 AM CDT Office Visit [address] [phone] Rosanne Dodson, [facility] 08/28/2021 10:00 AM CDT Office Visit [facility] [address] [place] [phone] Joce Severino DDS 08/28/2021 10:00 AM CDT Office Visit [facility] [address] [place] [phone] Rosanne Dodson, [facility] 05/29/2021 2:00 PM CDT Office Visit [facility] [address] [place] [phone] Rosanne Dodson, [facility] 02/27/2021 Travel 02/27/2021 11:00 AM SOCIAL AND POLITICAL STUDIES PROFESSOR Office Visit [facility] [place] [address] [place] [phone] Victoria Vcitoria, DMD 02/27/2021 11:00 AM SOCIAL AND POLITICAL STUDIES PROFESSOR Office Visit [facility] [address] [place] [address] Rosanne Dodson, [facility] 11/14/2020 Travel 11/14/2020 11:00 AM CDT Office Visit [facility] [place] [address] [place] [address] Rosanne Dodson, [facility] 04/04/2019 Converted CPS Chart Documents [facility] [place] [address] [place] [address] <No scans attached> 04/04/2019 Converted 13x Documents [facility] [address] [place] [address] <No scans attached> Last Filed Vital Signs Vital Sign Reading Time Taken Comments Blood Pressure 152/79 09/12/2022 11:12 AM CDT Pulse 61 09/12/2022 11:12 AM CDT Temperature 36.1 C (97 F) 02/27/2021 9:59 AM SOCIAL AND POLITICAL STUDIES PROFESSOR Respiratory Rate - - Oxygen Saturation - - Inhaled Oxygen Concentration - - Weight - - Height - - Body Mass Index - - Plan of Treatment Upcoming Encounters Date Type Department Care Team (Late st Contact Info) Description 10/04/2024 11:00 AM CDT Office Visit [facility] [address] [place] [phone] [facility] [address] [place] [address] 10/04/2024 11:00 AM CDT Office Visit [facility] [address] [place] [phone] Agata Villafana, DMD [address] [place], [place] [phone] 01/04/2025 11:00 AM CDT Office Visit [facility] [address] [place] [phone] [facility] [address] [place] [address] Procedures Procedure Name Priority Date/Time Associated Diagnosis Comments TOPICAL APPLICATION OF FLUORIDE VARNISH Routine 06/21/2024 11:00 AM CDT PERIO MAINTENANCE Routine 06/21/2024 11: 00 AM CDT PERIO MAINTENANCE Routine 12/15/2023 11: 00 AM [...] CDT PERIO CONSULT Routine 04/16/2023 10:00 AM SOCIAL AND POLITICAL STUDIES PROFESSOR PERIODIC ORAL EVALUATION - ESTABLISHED PATIENT Routine 02/26/2023 2:00 PM SOCIAL AND POLITICAL STUDIES PROFESSOR TOPICAL APPLICATION OF FLUORIDE VARNISH Routine 02/26/2023 1:00 PM SOCIAL AND POLITICAL STUDIES PROFESSOR PERIO MAINTENANCE Routine 02/26/2023 1:0 0 PM SOCIAL AND POLITICAL STUDIES PROFESSOR ORAL HYGIENE INSTRUCTIONS Routine 2022 1:00 PM SOCIAL AND POLITICAL STUDIES PROFESSOR UL JOSE DECON/QD Routine 09/12/2022 11:00 AM [...] - ESTABLISHED PATIENT Routine 05/20/2022 12:00 PM SOCIAL AND POLITICAL STUDIES PROFESSOR ORAL HYGIENE INSTRUCTIONS Routine 2022 12:00 PM SOCIAL AND POLITICAL STUDIES PROFESSOR PERIO MAINTENANCE Routine 05/20/2022 12: 00 PM SOCIAL AND POLITICAL STUDIES PROFESSOR PERIO MAINTENANCE Routine 11/26/2021 10: 00 AM [...] OF FLUORIDE VARNISH Routine 02/27/2021 11:00 AM SOCIAL AND POLITICAL STUDIES PROFESSOR ORAL HYGIENE INSTRUCTIONS Routine 2020 11:00 AM SOCIAL AND POLITICAL STUDIES PROFESSOR PERIO MAINTENANCE Routine 02/27/2021 11: 00 AM SOCIAL AND POLITICAL STUDIES PROFESSOR BITEWINGS - FOUR RADIOGRAPHIC IMAGES Routine 02/27/2021 11:00 AM SOCIAL AND POLITICAL STUDIES PROFESSOR PERIODIC ORAL EVALUATION - ESTABLISHED PATIENT Routine 02/27/2021 11:00 AM SOCIAL AND POLITICAL STUDIES PROFESSOR ORAL HYGIENE INSTRUCTIONS Routine 2020 11:00 AM CDT PERIO MAINTENANCE Routine 11/14/2020 11: 00 AM CDT PERIO MAINTENANCE Routine 08/07/2020 2:0 0 AM CDT ORAL HYGIENE INSTRUCTIONS Routine 2020 2:00 AM CDT TOPICAL APPLICATION OF FLUORIDE VARNISH Routine 08/07/2020 2:00 AM CDT PERIO MAINTENANCE Routine 05/08/2020 2:0 0 AM SOCIAL AND POLITICAL STUDIES PROFESSOR ORAL HYGIENE INSTRUCTIONS Routine 2020 2:00 AM SOCIAL AND POLITICAL STUDIES PROFESSOR PERIO MAINTENANCE Routine 01/31/2020 2:0 0 AM SOCIAL AND POLITICAL STUDIES PROFESSOR ORAL HYGIENE INSTRUCTIONS Routine 2019 2:00 AM SOCIAL AND POLITICAL STUDIES PROFESSOR 1 FM IRR W/PERIO MAINT Routine 0 2:00 AM SOCIAL AND POLITICAL STUDIES PROFESSOR 30 PONTIC - PFM - POST Routine 0 2:00 AM SOCIAL AND POLITICAL STUDIES PROFESSOR 19 PONTIC - PFM - POST Routine 0 2:00 AM SOCIAL AND POLITICAL STUDIES PROFESSOR 31 RETAINER CROWN - PFM - POST Routine 01/25/2020 2:00 AM SOCIAL AND POLITICAL STUDIES PROFESSOR 29 RETAINER CROWN - PFM - POST Routine 01/25/2020 2:00 AM SOCIAL AND POLITICAL STUDIES PROFESSOR 20 RETAINER CROWN - PFM - POST Routine 01/25/2020 2:00 AM SOCIAL AND POLITICAL STUDIES PROFESSOR 18 RETAINER CROWN - PFM - POST Routine 01/25/2020 2:00 AM SOCIAL AND POLITICAL STUDIES PROFESSOR 5 DO AMALGAM 2 SURFACE Routine 0 2:00 AM SOCIAL AND POLITICAL STUDIES PROFESSOR 3 ENDODONTIC THERAPY, MOLAR TOOTH (EXCLUDING FINAL ZOROASTRIAN) Routine 01/25/2020 2:00 AM SOCIAL AND POLITICAL STUDIES PROFESSOR 13 ENDODONTIC THERAPY, PREMOLAR TOOTH (EXCLUDING FINAL ZOROASTRIAN) Routine 01/25/2020 2:00 AM SOCIAL AND POLITICAL STUDIES PROFESSOR 13 CROWN PFM POST Routine 01/25/2020 2:0 0 AM SOCIAL AND POLITICAL STUDIES PROFESSOR 12 CROWN PFM POST Routine 01/25/2020 2:0 0 AM SOCIAL AND POLITICAL STUDIES PROFESSOR 4 CROWN PFM POST Routine 01/25/2020 2:00 AM SOCIAL AND POLITICAL STUDIES PROFESSOR 3 CROWN PFM POST Routine 01/25/2020 2:00 AM SOCIAL AND POLITICAL STUDIES PROFESSOR 32 EXTRACTION, ERUPTED TOOTH OR EXPOSED ROOT (ELEVATION AND/OR FORCEPS REMOVAL) Routine 01/25/2020 2:00 AM SOCIAL AND POLITICAL STUDIES PROFESSOR 30 EXTRACTION, ERUPTED TOOTH OR EXPOSED ROOT (ELEVATION AND/OR FORCEPS REMOVAL) Routine 01/25/2020 2:00 AM SOCIAL AND POLITICAL STUDIES PROFESSOR 19 EXTRACTION, ERUPTED TOOTH OR EXPOSED ROOT (ELEVATION AND/OR FORCEPS REMOVAL) Routine 01/25/2020 2:00 AM SOCIAL AND POLITICAL STUDIES PROFESSOR 17 EXTRACTION, ERUPTED TOOTH OR EXPOSED ROOT (ELEVATION AND/OR FORCEPS REMOVAL) Routine 01/25/2020 2:00 AM SOCIAL AND POLITICAL STUDIES PROFESSOR 16 EXTRACTION, ERUPTED TOOTH OR EXPOSED ROOT (ELEVATION AND/OR FORCEPS REMOVAL) Routine 01/25/2020 2:00 AM SOCIAL AND POLITICAL STUDIES PROFESSOR 15 EXTRACTION, ERUPTED TOOTH OR EXPOSED ROOT (ELEVATION AND/OR FORCEPS REMOVAL) Routine 01/25/2020 2:00 AM SOCIAL AND POLITICAL STUDIES PROFESSOR 2 EXTRACTION, ERUPTED TOOTH OR EXPOSED ROOT (ELEVATION AND/OR FORCEPS REMOVAL) Routine 01/25/2020 2:00 AM SOCIAL AND POLITICAL STUDIES PROFESSOR 1 EXTRACTION, ERUPTED TOOTH OR EXPOSED ROOT (ELEVATION AND/OR FORCEPS REMOVAL) Routine 01/25/2020 2:00 AM SOCIAL AND POLITICAL STUDIES PROFESSOR 14 EXTRACTION, ERUPTED TOOTH OR EXPOSED ROOT (ELEVATION AND/OR FORCEPS REMOVAL) Routine 01/25/2020 2:00 AM SOCIAL AND POLITICAL STUDIES PROFESSOR COMPREHENSIVE ORAL EVALUATION - NEW OR ESTABLISHED PATIENT Routine 01/25/2020 2:00 AM SOCIAL AND POLITICAL STUDIES PROFESSOR PANORAMIC RADIOGRAPHIC IMAGE Routine 01/25/2020 2:00 AM SOCIAL AND POLITICAL STUDIES PROFESSOR INTRAORAL - COMPREHENSIVE SERIES OF RADIOGRAPHIC IMAGES Routine 01/25/2020 2:00 AM SOCIAL AND POLITICAL STUDIES PROFESSOR OFFICE VISIT FOR OBSERVATION (DURING REGULARLY SCHEDULED HOURS) - NO OTHER SERVICES PERFORMED Routine 01/25/2020 2:00 AM SOCIAL AND POLITICAL STUDIES PROFESSOR INTRAORAL PHOTO Routine 01/25/2020 2:00 AM SOCIAL AND POLITICAL STUDIES PROFESSOR INTRAORAL PHOTO Routine 01/25/2020 2:00 AM SOCIAL AND POLITICAL STUDIES PROFESSOR INTRAORAL PHOTO Routine 01/25/2020 2:00 AM SOCIAL AND POLITICAL STUDIES PROFESSOR INTRAORAL PHOTO Routine 01/25/2020 2:00 AM SOCIAL AND POLITICAL STUDIES PROFESSOR 7 DL COMPOSITE FILLING Routine 0 2:00 AM SOCIAL AND POLITICAL STUDIES PROFESSOR 6 ML COMPOSITE FILLING Routine 0 2:00 AM SOCIAL AND POLITICAL STUDIES PROFESSOR Visit Diagnoses Diagnosis Start Date Encounter for dental examination and cleaning without abnormal findings 09/08/2023 Insurance [employer]
== END 2024-08-19 09:01 | disposition home or self-care (01) ==
LOC: ANHIMG 09:02
PROVIDERS: PCP Family Medicine Adolescent Medicine; Visit Provider Family Medicine Adolescent Medicine
DX: Z12.31 Encounter for screening mammogram for malignant neoplasm of breast (principal)
CPT/HCPCS: 77063; 77067